=== PATIENT | female | born 2000 | race Caucasian/White ===

== ENCOUNTER 2024-04-07 20:46 | Emergency (ER) | payer OTHER, SELFPAY ==
[2024-04-07 20:46] VITALS: BMI 33.1
[2024-04-07 20:48] VITALS: BP 111/89
[2024-04-07] MEDS: TYLENOL 1000 MG PO (22:05)
--- NOTE | 2024-04-07 22:13 | ED.GENMED ---
History of Present Illness
General
Chief Complaint: Head Injury
Source: patient and spouse (Mother)
Time Seen by Provider: 04/07/24 21:37
History of Present Illness
History of Present Illness:
23-year-old female presents emergency room complaining of a head injury. Patient was snowboarding when she fell backwards striking the back of her head. She did not have any loss of consciousness. She does complain of a headache which she rates
10 out of 10. She denies any associated nausea or vomiting. She denies any focal weakness numbness or tingling.
Past History
Past History
ED Past Medical History: None
ED Past Surgical History: None
Social History
Tobacco: Non-smoker
Phy Exam
Physical Exam
Physical Exam:
General: Awake, Alert, Oriented X3. No acute distress, appears comfortable.
Vitals: unremarkable
Head: Atraumatic
Eyes: Pupils equal, EOMI
Throat: Airway intact, no exudates
Neck: Trachea midline
Lungs: Clear and equal b/l
Heart: Regular rate, no murmurs
Abd: Soft, Nontender, No pulsatile mass
Neuro: Cranial nerves intact, muscle strength equal bilaterally, cerebellar exam normal
Skin: Warm, dry, no rash
Extremities: pulses equal b/l, no edema
Course
Orders/Labs/Results
Orders:
Orders
04/07/24 21:57
CT Head W/o Iv Contrast Urgent
Comment:
Reason For Exam: head injury
Acetaminophen [Tylenol] 1,000 mg PO NOW STA
Vital Signs
Initial and Last Documented VS:
Initial Vital Signs
Temp Pulse Resp BP Pulse Ox
99.3 F 72 18 111/89 98
04/07/24 20:48 04/07/24 20:48 04/07/24 20:48 04/07/24 20:48 04/07/24 20:48
Last Documented Vital Signs
Temp Pulse Resp BP Pulse Ox
99.3 F 72 18 111/89 98
04/07/24 20:48 04/07/24 20:48 04/07/24 20:48 04/07/24 20:48 04/07/24 20:48
MDM/Problems Addressed
Differential Diagnosis Includes:
Subdural, subarachnoid, concussion, contusion
MDM/Problems Addressed:
Patient presents with headache after falling while snowboarding. No loss of consciousness however the patient states her headache is severe. I discussed with the patient our desire to balance radiation exposure with the desire to be sure there is
no intracranial injury. Her overall risk of my assessment is quite low. However family and patient seem uncomfortable with not having a CAT scan. Given she describes her pain is 10 out of [address]
CT shows no acute intracranial abnormality. Patient stable for discharge home.
*Radiology
Radiology exam reviewed: radiology read reviewed
*Pulse Oximetry
Patient hypoxic: no
*Critical Care Note
Total Time (30-74mins, 75-104mins- exclusive of procedures): Not Applicable
ED Attending Note
-
Portions of this chart may have been created with voice recognition software.� Occasional wrong word or��sound alike� substitutions may have occurred due to the inherent limitations of voice recognition software.
Discharge Plan
Departure
Patient Disposition: Home (Routine Discharge)
Date of Disposition: 04/07/24
Time of Disposition: 23:35
Patient with high blood pressure during this ER visit?: No
Condition: Good
Discharge Problem:
Head injury
Instructions: Head Injury in Adults (DC)
Prescriptions:
No Action
Taytulla 1 mg-20 Mcg Capsule
1 tab PO DAILY
Referrals:
UNKNOWN - PT DOES,NOT KNOW [Family Provider] -
Stand Alone Forms: Return to Work
Interventions
Interventions:
*Risk Screen - Suicide Last Done: 04/07/24 20:48
*General Assessment Last Done: 04/07/24 20:48
*Neglect/Abuse Screening Last Done: 04/07/24 20:48
ED- Fall Risk Assessment Last Done: 04/07/24 23:43
*Nursing Disposition Last Done: 04/07/24 23:43
ED- Neurological Assessment Last Done: 04/07/24 21:38
ED-Skin Assessment Last Done: 04/07/24 21:38
Discharge Date and Time
Discharge Date/Time: 04/07/24 23:44
Print Language: BULGARIAN
== END 2024-04-07 23:44 | disposition home or self-care (01) ==
LOC: EMR 20:46
PROVIDERS: EMERGENCY PHYSICIAN Emergency Medicine
DX: S09.90XA Unspecified injury of head, initial encounter (principal); V00.311A Fall from snowboard, initial encounter
CPT/HCPCS: 99283; 70450